=== PATIENT | male | born 1990 | race Caucasian/White ===

== ENCOUNTER 2019-02-07 19:44 | Emergency (ER) | payer SELFPAY ==
[~2019-02-07] VITALS: Ht 177.8 cm; Wt 106.6 kg
== END 2019-02-07 20:50 | disposition home or self-care (01) ==
LOC: FSED 19:44
DX: R50.9 Fever, unspecified (principal); J03.00 Acute streptococcal tonsillitis, unspecified
CPT/HCPCS: 99282